=== PATIENT | female | born 1955 | race Caucasian/White ===

== ENCOUNTER 2020-04-04 06:16 | Observation (INO) ==
[~2020-04-04 06:16] MED LIST: Buffered Lidocaine 1% SYRIN 1 ml INTRADERM ONE; Famotidine IV 10 MG/ML 2 ml VIAL (20 mg) IV SLOW PU ONE; Lactated Ringers 1000 ml BAG 1,000 ML IV SCH; Sodium Citrate/Citric Acid LIQ 15 ML UDC PO ONE
[2020-04-04] MEDS ORDERED: Midazolam 2 mg/2 ml VIAL 1 mg/ml 2 ml VIAL (2 mg) ONE (06:31)
[2020-04-04] MEDS ORDERED: Propofol 10 MG/ML 20 ML BTL ONE ×2 (06:31→10:36)
[2020-04-04] MEDS ORDERED: EPHEDrine (Pressors) 50 MG/ML VIAL ONE (06:31)
[2020-04-04] MEDS ORDERED: Phenylephrine 40 mcg/mL 10mL (400mcg) SYRINGE ONE (06:31)
[2020-04-04] MEDS ORDERED: Dexamethasone IV 4 MG/ML VIAL 1 ml VIAL ONE (06:31)
[2020-04-04] MEDS ORDERED: Lidocaine 2% PF 5 ML VIAL ONE (06:31)
[2020-04-04] MEDS ORDERED: Sterile Water for Inj 10 ML ONE (06:31)
[2020-04-04] MEDS ORDERED: Rocuronium 50 mg VIAL 10 mg/ml 5 ml VIAL (50 mg) ONE ×2 (06:31→09:59)
[2020-04-04] MEDS ORDERED: fentaNYL 250 mcg/5 ml 50 MCG/ML 5 ml VIAL (250 MCG) ONE (06:31)
[2020-04-04] MEDS ORDERED: Succinylcholine 200 mg VIAL 20 mg/ml 10 ml VIAL (200 mg) ONE (06:40)
[2020-04-04] MEDS ORDERED: Sodium Citrate/Citric Acid LIQ 15 ML UDC ONE (06:58)
[2020-04-04] MEDS ORDERED: ceFAZolin 2 GM in NS PREMIX 2 GM/100 ML BAG IVPB ONE (06:59)
[2020-04-04] MEDS ORDERED: Famotidine IV 10 MG/ML 2 ml VIAL (20 mg) ONE (06:59)
[2020-04-04] MEDS ORDERED: Buffered Lidocaine 1% SYRIN 1 ml INTRADERM ONE (06:59)
[2020-04-04] MEDS ORDERED: Thrombin 5,000 UNITS 1 APPLIC KIT - topical use - TOPICAL ONE ×2 (07:11→10:56)
[2020-04-04] MEDS ORDERED: Lidocaine 1% w EPI 1:200,000 SDV 30 ML VIAL ONE (07:11)
[2020-04-04] MEDS ORDERED: Bacitracin INJECTION 50,000 UNITS ONE (07:11)
[2020-04-04] MEDS ORDERED: Ondansetron 4 mg VIAL 2 MG/ML 2 ml VIAL IV PRN ×2 (08:52→11:50)
[2020-04-04] MEDS ORDERED: DiMENhydriNATE IV 50 mg/ml 1 ml VIAL IV PUSH PRN (08:52)
[2020-04-04] MEDS ORDERED: Naloxone 0.4 mg VIAL 0.4 mg/ml 1 ml VIAL IV PRN (08:52)
[2020-04-04] MEDS ORDERED: diPHENhydraMINE IV 50 MG/ML 1 ml VIAL (BENADRYL) IV PRN (08:52)
[2020-04-04] MEDS ORDERED: fentaNYL 100 mcg/2 ml 50 MCG/ML VIAL IV PRN (08:52)
[2020-04-04] MEDS ORDERED: Magnesium Hydroxide LIQ 30 ML UDC PO PRN (11:50)
[2020-04-04] MEDS ORDERED: Morphine 2 MG/ML SYRINGE IV PRN (11:57)
[2020-04-04] MEDS ORDERED: Lactated Ringers 1000 ml BAG 1,000 ML IV SCH (12:00)
[2020-04-04] MEDS ORDERED: Dextrose 50% Syringe 50 ml 25 GM/50 ML SYRINGE IV PUSH PRN (12:08)
[2020-04-04] MEDS ORDERED: HYDROmorphone 1 MG/1 ML SYRINGE ONE (12:54)
[2020-04-04] MEDS: HYDROmorphone 1 MG/1 ML SYRINGE IV PRN ×3 (12:55→13:15)
[2020-04-04] MEDS: HYDROcodone/ACETAMIN 5/325 mg TAB PO PRN ×2 (15:12→20:38)
[2020-04-05] MEDS ORDERED: Valsartan/HCTZ 320/25(NF) TAB PO SCH (09:00)
[2020-04-05] MEDS ORDERED: CYANOCOBALAMIN 50 MCG PO SCH (09:00)
[2020-04-05] MEDS ORDERED: Insulin GLARGINE 100 un/ml 10 ml VIAL SUBCUT SCH (09:00)
[2020-04-05] MEDS: HYDROcodone/ACETAMIN 5/325 mg TAB PO PRN (12:10)
[2020-04-05 15:25] VITALS: BP 99/74
== END 2020-04-05 19:15 | disposition home or self-care (01) ==
LOC: OR 06:16 → SSU 11:50 → INTOOBSV 11:50
PROVIDERS: ADMIT Neurological Surgery; ATTEND Neurological Surgery
PROC: O.NEPLF (2020-04-04 07:30)